=== PATIENT | male | born 1975 | race African-American/Black ===

== ENCOUNTER 2018-04-13 05:57 | Day surgery (SDC) | payer MEDICAID ==
[~2018-04-13] VITALS: Ht 185.4 cm; Wt 95.3 kg
[~2018-04-13 05:57] MED LIST: CLON0.1T PO; HYDR-2510 PO
[2018-04-13] MEDS ORDERED: LACTATED RINGERS 1,000 ML IV SCH (06:45)
[2018-04-13] MEDS ORDERED: BUPIVACAINE HCL 0.5% (5MG/ML) 50ML ONE (06:56)
[2018-04-13] MEDS ORDERED: BUPIVACAINE HCL/PF 0.5% (5MG/ML) 10ML ONE (07:00)
[2018-04-13] MEDS ORDERED: FENTANYL CITRATE/PF 50MCG/ML 2ML VIAL ONE (07:28)
[2018-04-13] MEDS ORDERED: MIDAZOLAM HCL 2 MG/2 ML VIAL ONE (07:28)
[2018-04-13] MEDS ORDERED: PROPOFOL 200MG/20ML VIAL IV ONE ×2 (07:28→07:41)
[2018-04-13] MEDS ORDERED: TRIAMCINOLONE ACETONIDE 40MG/ML 1ML VIAL ONE ×2 (07:29→07:55)
[2018-04-13] MEDS ORDERED: DEXAMETHASONE 4MG/ML 1ML VIAL ONE (07:40)
[2018-04-13] MEDS ORDERED: ONDANSETRON HCL 4MG/2ML INJ ONE (07:40)
[2018-04-13] MEDS ORDERED: LABETALOL HCL 20MG/4ML CARPUJECT IV PRN (07:45)
[2018-04-13] MEDS ORDERED: MEPERIDINE HCL/PF 25MG/ML CPJ IV PRN (07:45)
[2018-04-13] MEDS ORDERED: HYDROMORPHONE HCL/PF 2MG/ML CPJ IV PRN (07:45)
[2018-04-13] MEDS ORDERED: ONDANSETRON HCL 4MG/2ML INJ IV PRN (07:45)
[2018-04-13] MEDS ORDERED: SKIN ADHESIVE 0.7 GM EA TOP ONE (08:06)
== END 2018-04-13 10:10 | disposition home or self-care (01) ==
LOC: OR 05:57
PROVIDERS: ATTEND Surgery
DX: L91.0 Hypertrophic scar (principal); I10 Essential (primary) hypertension
CPT/HCPCS: 21552; 88309; G0168; J1100; J2250; J2405; J2704; J3010; J3301; J3490